=== PATIENT | female | born 1970 | race Caucasian/White ===

== ENCOUNTER 2022-02-08 10:50 | Emergency (ER) | payer MEDICARE, MEDICAID ==
[~2022-02-08] VITALS: Ht 162.6 cm; Wt 91.0 kg
[2022-02-08] MEDS ORDERED: DIPHENHYDRAMINE 50MG/ML VIAL IM STA (11:15)
[2022-02-08] MEDS ORDERED: HALOPERIDOL LACTATE 5MG/ML VIAL IM STA (11:15)
[2022-02-08] MEDS ORDERED: LORAZEPAM 2MG/ML CPJ IM STA (11:15)
[2022-02-08 12:30] LABS: EOSINOPHILS % 3.6 % (0.0-5.0); HEMATOCRIT. 39.9 % (36.0-48.0); HEMOGLOBIN. 13.6 g/dL (12.0-16.0); LYMPHOCYTES % 31.1 % (20.0-50.0); MEAN CORPUSCULAR HEMOGLOBIN 28.4 pg (28.0-32.0); MONOCYTES % 8.3 % (2.0-8.0); PLATELET 144 x1000/uL (130-400); RED BLOOD CELL COUNT 4.81 mill/uL (4.2-5.4); RED CELL DISTRIBUTION WIDTH 13.4 % (11.6-14.6)
[2022-02-08 12:41] LABS: CHLORIDE 104 mEq/L (98-107)
[2022-02-08 12:49] LABS: ETHANOL BLOOD < 10 mg/dL
[2022-02-08 13:12] LABS: CLARITY URINE CLEAR (CLEAR); COLOR URINE YELLOW (YELLOW); KETONES URINE NEGATIVE (NEGATIVE); LEUKOCYTE ESTERASE URINE NEGATIVE (NEGATIVE); NITRITE URINE NEGATIVE (NEGATIVE); OCCULT BLOOD URINE NEGATIVE (NEGATIVE); PH URINE 6.5 (4.5-8.0); PROTEIN URINE NEGATIVE (NEGATIVE); SPECIFIC GRAVITY URINE 1.022 (1.005-1.030); UROBILINOGEN URINE 0.2 E.U./dL (0.2-1.0)
[2022-02-08 13:41] LABS: *AMPHETAMINES SCREEN URINE NEGATIVE (NEGATIVE); *BARBITURATES SCREEN URINE NEGATIVE (NEGATIVE); *BENZODIAZEPINES SCREEN URINE NEGATIVE (NEGATIVE); *COCAINE SCREEN URINE NEGATIVE (NEGATIVE); CANNABINOID URINE SCREEN NEGATIVE (NEGATIVE); METHADONE URINE SCREEN NEGATIVE (NEGATIVE); OPIATES URINE SCREEN NEGATIVE (NEGATIVE); PHENCYCLIDINE URINE SCREEN NEGATIVE (NEGATIVE)
[2022-02-09] MEDS: VENLAFAXINE HCL 37.5MG TABLET PO SCH (10:00)
[2022-02-10] MEDS: VENLAFAXINE HCL 37.5MG TABLET PO SCH (09:00)
[2022-02-10] MEDS ORDERED: PIOGLITAZONE 45MG TABLET PO ONE (16:30)
[2022-02-10] MEDS ORDERED: IBUPROFEN 800MG TABLET PO ONE (22:00)
[2022-02-10] MEDS ORDERED: LORAZEPAM 2MG/ML CPJ IM NR (22:30)
[2022-02-10] MEDS ORDERED: DIPHENHYDRAMINE 50MG/ML VIAL IM NR (22:30)
[2022-02-10] MEDS ORDERED: IBUPROFEN 800MG TABLET PO NR (22:30)
[2022-02-10] MEDS ORDERED: HALOPERIDOL LACTATE 5MG/ML VIAL IM NR (22:30)
[2022-02-11] MEDS ORDERED: ACETAMINOPHEN 325MG TABLET PO NR (04:17)
[2022-02-11 13:47] VITALS: BP 142/73
== END 2022-02-11 13:58 | disposition home or self-care (01) ==
LOC: ER 11:14
DX: F33.2 Major depressive disorder, recurrent severe without psychotic features (principal); R45.851 Suicidal ideations; U07.1 COVID-19; R45.89 Other symptoms and signs involving emotional state; I69.351 Hemiplegia and hemiparesis following cerebral infarction affecting right dominant side; R03.0 Elevated blood-pressure reading, without diagnosis of hypertension; E11.9 Type 2 diabetes mellitus without complications; I69.398 Other sequelae of cerebral infarction; R53.1 Weakness; R26.2 Difficulty in walking, not elsewhere classified; G25.2 Other specified forms of tremor; Z79.899 Other long term (current) drug therapy; Z75.1 Person awaiting admission to adequate facility elsewhere; Z88.0 Allergy status to penicillin; Z88.5 Allergy status to narcotic agent; Z88.8 Allergy status to other drugs, medicaments and biological substances; Z91.011 Allergy to milk products; Z99.3 Dependence on wheelchair; Z88.7 Allergy status to serum and vaccine
CPT/HCPCS: 36415; 80053; 80305; 80307; 80320; 80329; 81003; 82962; 85025; 99285; C9803; U0003; U0005; G0480

== ENCOUNTER 2022-04-15 00:42 | Emergency (ER) | payer MEDICARE, MEDICAID ==
[~2022-04-15] VITALS: Ht 162.6 cm; Wt 113.0 kg
[2022-04-15] MEDS ORDERED: OLANZAPINE 10 MG/VIAL IM ONE (02:15)
[2022-04-15 03:07] LABS: BASOPHILS % 0.5 % (0.0-2.0); EOSINOPHILS % 1.1 % (0.0-5.0); HEMATOCRIT. 48.3 % (36.0-48.0); HEMOGLOBIN. 15.9 g/dL (12.0-16.0); MEAN CORPUSCULAR HEMOGLOBIN 27.6 pg (28.0-32.0); MEAN CORPUSCULAR VOLUME 84.1 fL (81.0-99.0); MEAN PLATELET VOLUME 9.6 fl (7.4-10.4); MONOCYTES % 6.5 % (2.0-8.0); NEUTROPHILS % 62.9 % (40.0-76.0); PLATELET 210 x1000/uL (130-400); RED BLOOD CELL COUNT 5.74 mill/uL (4.2-5.4); RED CELL DISTRIBUTION WIDTH 14.1 % (11.6-14.6)
[2022-04-15 03:16] LABS: CHLORIDE 106 mEq/L (98-107); ETHANOL BLOOD < 10 mg/dL
[2022-04-15 03:28] LABS: *AMPHETAMINES SCREEN URINE NEGATIVE (NEGATIVE); *BARBITURATES SCREEN URINE NEGATIVE (NEGATIVE); *BENZODIAZEPINES SCREEN URINE NEGATIVE (NEGATIVE); *COCAINE SCREEN URINE NEGATIVE (NEGATIVE); CANNABINOID URINE SCREEN NEGATIVE (NEGATIVE); METHADONE URINE SCREEN NEGATIVE (NEGATIVE); OPIATES URINE SCREEN NEGATIVE (NEGATIVE); PHENCYCLIDINE URINE SCREEN NEGATIVE (NEGATIVE)
[2022-04-15 08:11] VITALS: BP 134/82
== END 2022-04-15 12:38 | disposition home or self-care (01) ==
LOC: ER 00:42
DX: R45.851 Suicidal ideations (principal); F32.9 Major depressive disorder, single episode, unspecified; E11.9 Type 2 diabetes mellitus without complications; I10 Essential (primary) hypertension; Z88.0 Allergy status to penicillin; Z88.5 Allergy status to narcotic agent; Z20.822 Contact with and (suspected) exposure to COVID-19
CPT/HCPCS: 36415; 80053; 80305; 80307; 80320; 80329; 85025; 96372; 99283; C9803; J3490; U0003; U0005; G0480

== ENCOUNTER 2024-09-28 16:43 | Emergency (ER) | payer MEDICAID ==
[~2024-09-28] VITALS: Ht 167.6 cm; Wt 70.0 kg
[2024-09-28 16:50] VITALS: BP 113/74; PULSE 84; RESP 18; O2SAT 100
[2024-09-28] MEDS ORDERED: LIDO700A15 TP (21:59)
[2024-09-28] MEDS ORDERED: NAPR-1176 MT (21:59)
[2024-09-28 22:30] VITALS: TEMP 98.3
[2024-09-28] MEDS: ACETAMINOPHEN 325MG TABLET PO ONE (22:30)
== END 2024-09-29 00:16 | disposition home or self-care (01) ==
LOC: ER 16:43
DX: S00.93XA Contusion of unspecified part of head, initial encounter (principal); M79.674 Pain in right toe(s); R51.9 Headache, unspecified; E11.9 Type 2 diabetes mellitus without complications; Z79.1 Long term (current) use of non-steroidal anti-inflammatories (NSAID); Z88.0 Allergy status to penicillin; Z88.5 Allergy status to narcotic agent; I10 Essential (primary) hypertension; W01.0XXA Fall on same level from slipping, tripping and stumbling without subsequent striking against object, initial encounter; Y93.89 Activity, other specified; Y92.091 Bathroom in other non-institutional residence as the place of occurrence of the external cause; Y99.8 Other external cause status
CPT/HCPCS: 70486; 73660; 99284

== ENCOUNTER 2024-09-29 01:15 | Emergency (ER) | payer MEDICAID ==
[~2024-09-29] VITALS: Ht 167.6 cm; Wt 99.0 kg
[~2024-09-29 01:15] MED LIST: LIDO700A15 TP; NAPR-1176 MT
[2024-09-29 01:55] VITALS: BP 134/74; RESP 18; TEMP 97.9; O2SAT 98
[2024-09-29 01:57] VITALS: PULSE 89; O2SAT 98
== END 2024-09-29 05:51 | disposition home or self-care (01) ==
LOC: ER 01:29
DX: S00.31XA Abrasion of nose, initial encounter (principal); S90.414A Abrasion, right lesser toe(s), initial encounter; I10 Essential (primary) hypertension; E11.9 Type 2 diabetes mellitus without complications; Z90.89 Acquired absence of other organs; Z98.890 Other specified postprocedural states; Z88.0 Allergy status to penicillin; Z88.5 Allergy status to narcotic agent; Z88.8 Allergy status to other drugs, medicaments and biological substances; X58.XXXA Exposure to other specified factors, initial encounter; Y93.89 Activity, other specified; Y92.89 Other specified places as the place of occurrence of the external cause; Y99.8 Other external cause status
CPT/HCPCS: 99281